=== PATIENT | male | born 1995 | race Caucasian/White ===

== ENCOUNTER 2017-02-03 16:52 | Emergency (ER) | payer OTHER | END 2017-02-03 18:06 | disposition left against medical advice (07) | LOC: ED 16:52 | DX: Z53.21 Procedure and treatment not carried out due to patient leaving prior to being seen by health care provider (principal) ==

== ENCOUNTER 2018-10-03 15:57 | Emergency (ER) | payer OTHER ==
[~2018-10-03] VITALS: Ht 177.8 cm; Wt 70.3 kg
[2018-10-03 16:09] VITALS: Ht 177.8 cm; Wt 70.3 kg
[2018-10-03 18:19] VITALS: BP 96/65
== END 2018-10-03 18:19 | disposition home or self-care (01) ==
LOC: ED 15:57
DX: S66.911A Strain of unspecified muscle, fascia and tendon at wrist and hand level, right hand, initial encounter (principal); F41.9 Anxiety disorder, unspecified; W22.8XXA Striking against or struck by other objects, initial encounter; Y93.89 Activity, other specified; Y92.89 Other specified places as the place of occurrence of the external cause; Y99.8 Other external cause status